=== PATIENT | female | born 1960 | race Caucasian/White ===

== ENCOUNTER 2022-10-05 11:22 | Outpatient (CLI) | payer MEDICAID, SELFPAY ==
--- NOTE | 2022-10-05 11:31 | MM_ITS ---
WS: [id number] VIEWS: MLO and CC views both breasts. 3D digital tomosynthesis is also included in this exam. Comparison made with prior exam of 11/07/2012, 10/09/2014, 06/07/2016,. Findings: There was no sign of mass, architectural distortion or suspicious calcification in either breast. Sc attered fibroglandular densities MM/[id number] Impression: BI-RADS: 2-Benign FOLLOW-UP: 1 Year Follow-up This mammogram was also analyzed by the Computer Aided Detection System [employer] Contact Center Assistant.
== END 2022-10-05 11:23 | disposition home or self-care (01) ==
PROVIDERS: PCP Internal Medicine; Visit Provider Internal Medicine
DX: Z12.31 Encounter for screening mammogram for malignant neoplasm of breast (principal)
CPT/HCPCS: 77063; 77067

== ENCOUNTER 2022-12-12 13:08 | Outpatient (CLI) | payer MEDICAID, SELFPAY ==
--- NOTE | 2022-12-12 13:24 | CT_ITS ---
WS: [id number] LDCT LUNG CANCER SCREENING HISTORY: TOBACCO ABUSE, CONTINUOUS TECHNIQUE: Axial imaging performed from the apices to 1 cm below the costophrenic angles. Coronal and sagittal reformats are submitted with axial MIP series. All CT scans at [facility] use at least one of these dose optimization techniques: automated exposure control; mA and/or kV adjustment per patient size (includes targeted exams where dose is matched to clinical indication); or iterativ e reconstruction. DLP: 72.91 mGy.cm DIvol: Mean CTDIvol: 1.70 (mGy) COMPARISON: None available. Diagnostic quality: Satisfactory Lungs: Mild chronic emphysema. 4 mm nodule RIGHT upper lobe. No additional noncalcified nodules are i dentified. There are a few scattered calcified granulomata. No endobronchial lesions. Heart: Normal size heart with no pericardial effusion.. Other findings: Mild enlargement of the pulmonary artery. Very minimal atherosclerosis aorta. Calcifi ed mediastinal and hilar lymph nodes. No pericardial effusion. Splenic and hepatic granulomatous. No adrenal mass. Increase in thoracic kyphosis. CT/CT lung screening [id number] IMPRESSION: LUNG-RADS: 3-Probably Benign FOLLOW UP: 6 Month LDCT OTHER FINDINGS (S MODIFIER): None.
== END 2022-12-12 13:09 | disposition home or self-care (01) ==
PROVIDERS: PCP Internal Medicine; Visit Provider Internal Medicine
DX: Z12.2 Encounter for screening for malignant neoplasm of respiratory organs (principal); F17.200 Nicotine dependence, unspecified, uncomplicated
CPT/HCPCS: 71271

== ENCOUNTER 2023-04-06 13:22 | Outpatient (CLI) | payer MEDICAID, SELFPAY ==
--- NOTE | 2023-04-06 13:26 | XR_ITS ---
WS: [email or web address] SCREENING DEXA SCAN Medialive CLINICAL INFORMATION: ASYMPTOMATIC POSTMENOPAUSAL STATUS COMPARISON: None. FINDINGS: The L1-L4 bone mineral density measures 0.961 g/cm2. This corresponds to a T score score of -1.8 and Z score of -1.3. Left femoral neck bone mineral density measures 0.910 g/cm2. This corresponds to a T score of -0.8 an d Z score of -0.4. Right femoral neck bone mineral density measures 0.887 g/cm2. This corresponds to a T score -1.0of an d Z score of -0.5. Mean femoral neck bone mineral density measures 0.899 g/cm2. This corresponds to a T score of -0.9 an d Z score of -0.4. IMPRESSION: Osteopenia lumbar spine. Osteopenia femoral necks at the lower end of the range. Patient's FRAX calculated 10 year probability for major osteoporotic fracture is 10.1% and osteoporot ic hip fracture is 2.3%.
== END 2023-04-06 13:23 | disposition home or self-care (01) ==
PROVIDERS: PCP Internal Medicine; Visit Provider Internal Medicine
DX: Z78.0 Asymptomatic menopausal state (principal); M85.89 Other specified disorders of bone density and structure, multiple sites
CPT/HCPCS: 77080

== ENCOUNTER 2023-07-03 11:53 | Outpatient (CLI) | payer MEDICAID, SELFPAY ==
--- NOTE | 2023-07-03 12:00 | CT_ITS ---
WS: [email or web address] LDCT LUNG CANCER SCREENING TECHNIQUE: Noncontrast CT of the chest with coronal and sagittal reformatted images. CLINICAL INFORMATION: NICOTINE DEPENDENCE,CIGARETTES COMPARISON: CT 12/12/2022 DLP: 78.41 mGy.cm DIvol: Mean CTDIvol: 1.80 (mGy) All CT scans at [facility] use at least one of these dose optimization techniques: automat ed exposure control; mA and/or kV adjustment per patient size (includes targeted exams where dose is matched to clinical indication); or iterative reconstruction. FINDINGS: Mild chronic emphysematous changes. Slightly irregular 4 mm nodule RIGHT upper lobe near the lung ape x is stable. A few calcified granulomas. Stable 4 mm RIGHT lower lobe nodule laterally. Normal caliber thoracic aorta. Calcified mediastinal hilar and subcarinal lymph nodes. Spinal granulo mas. Hepatic granulomas. Adrenal glands are normal. Normal GE junction. Moderate thoracic kyphosis. Disc narrowing in the midthoracic spine. IMPRESSION: CT/CT lung screening [id number] LUNG-RADS: 2-Benign Appearance or Behavior FOLLOW UP: 12 Month: Continue annual screening with LDCT
== END 2023-07-03 11:54 | disposition home or self-care (01) ==
LOC: RAD 11:54
PROVIDERS: PCP Internal Medicine; Visit Provider Internal Medicine
DX: Z12.2 Encounter for screening for malignant neoplasm of respiratory organs (principal); F17.210 Nicotine dependence, cigarettes, uncomplicated
CPT/HCPCS: 71271

== ENCOUNTER → 2024-02-20 14:56 | Outpatient (CLI) | payer MEDICAID, SELFPAY ==
--- NOTE | 2024-02-20 15:03 | MM_ITS ---
WS: [email or web address] Bilateral screening 3D tomosynthesis digital mammogram, 02/20/2024 Clinical Data: SCREENING Comparison: 10/05/2022, 06/07/2016, 10/09/2014, 11/07/2012. Findings: The breast parenchymal pattern shows fibroglandular tissue. No spiculated masses or clustered calcifi cations are seen. There are no secondary signs of carcinoma. There are mole markers on both breasts. There are benign calcifications in the right breast.. MM/[place] [id number] Impression: 1. Negative bilateral mammogram unchanged. 2. Recommend annual screening mammograms. BIRADS: 1-Negative FOLLOW UP: 1 Year Follow-up The CAD policy checker was used.
== END | disposition home or self-care (01) ==
LOC: RAD 14:56
PROVIDERS: PCP Internal Medicine; Visit Provider Internal Medicine
DX: Z12.31 Encounter for screening mammogram for malignant neoplasm of breast (principal); R92.323 Mammographic fibroglandular density, bilateral breasts; R92.1 Mammographic calcification found on diagnostic imaging of breast
CPT/HCPCS: 77063; 77067

== ENCOUNTER → 2024-05-26 14:35 | Outpatient (BNVA) | payer MEDICAID, SELFPAY | PROVIDERS: PCP Internal Medicine; Visit Provider Podiatrist Foot & Ankle Surgery | DX: M76.891 Other specified enthesopathies of right lower limb, excluding foot (principal); M25.861 Other specified joint disorders, right knee; M25.561 Pain in right knee | CPT/HCPCS: 73564 ==

== ENCOUNTER 2024-06-16 14:03 | Outpatient (CLI) | payer MEDICAID, SELFPAY ==
--- NOTE | 2024-06-16 14:06 | CT_ITS ---
WS: [email or web address] LDCT LUNG CANCER SCREENING TECHNIQUE: Noncontrast CT of the chest with coronal and sagittal reformatted images. CLINICAL INFORMATION: HISTORY OF TOBACCO USE COMPARISON: CT 07/03/2023 DLP: 76.12 mGy.cm DIvol: Mean CTDIvol: 1.70 (mGy) All CT scans at [facility] use at least one of these dose optimization techniques: automat ed exposure control; mA and/or kV adjustment per patient size (includes targeted exams where dose is matched to clinical indication); or iterative reconstruction. FINDINGS: 4 mm nodule RIGHT upper lobe near the lung apex is stable. Stable 4 mm RIGHT lower lobe nod ule laterally. A few calcified granulomas. No new suspicious pulmonary parenchymal abnormalities. Mil d chronic emphysematous changes. Calcified mediastinal hilar and subcarinal lymph nodes. Normal caliber thoracic aorta. Calcified gran ulomas. Splenic and hepatic granulomas. Adrenal glands are normal. Normal GE junction. Disc space narrowing midthoracic spine. Moderate thoracic kyphosis. CT/CT lung screening [id number] IMPRESSION: LUNG-RADS: 2-Benign Appearance or Behavior FOLLOW UP: 12 Month: Continue annual screening with LDCT
== END 2024-06-16 14:04 | disposition home or self-care (01) ==
LOC: RAD 14:04
PROVIDERS: PCP Internal Medicine; Visit Provider Internal Medicine
DX: Z12.2 Encounter for screening for malignant neoplasm of respiratory organs (principal); R91.8 Other nonspecific abnormal finding of lung field; J84.10 Pulmonary fibrosis, unspecified; D73.89 Other diseases of spleen; K75.3 Granulomatous hepatitis, not elsewhere classified
CPT/HCPCS: 71271

== ENCOUNTER 2024-07-02 15:47 | Outpatient (CLI) | payer MEDICAID, SELFPAY ==
--- NOTE | 2024-07-02 15:49 | MR_ITS ---
WS: [email or web address] MRI RIGHT KNEE HISTORY: Chronic RIGHT knee pain. No injury. COMPARISON: 05/23/2016 Anterior cruciate ligament: Marked thickening and increased signal throughout the ACL. Most significa nt for mucoid degeneration. Majority the fibers are still identified and intact. Posterior cruciate ligament: Intact. Medial collateral ligament: Intact. Posterior lateral corner structures: Intact. Medial menisci: Intact, mild surface fraying of the posterior horn but no tear. Lateral meniscus: Very small caliber nearly absent posterior horn. Consistent with a complex tear inv olving nearly the entire meniscus. Increased signal in the anterior horn also but no tear. Extensor mechanism: Distal quadriceps tendon and patellar tendons are intact. Fluid and soft tissue: Small suprapatellar joint effusion. Small Chris's cyst. Osseous and articular structures: Patellofemoral compartment: No significant cartilage abnormality. Medial compartment: Mild narrowing of the medial compartment. Mild thinning and fissuring of the cart ilage but no full-thickness defect. Lateral compartment: Mild narrowing of the lateral compartment with thinning and fissuring of the car tilage. Slightly greater chondromalacia along the weightbearing surface of the femoral condyle. No fu ll-thickness cartilage defect. MR/MR knee RT wo con* [id number] IMPRESSION: 1. Marked mucoid degeneration throughout the ACL. Significant progression sinc e 2015. 2. Small caliber, nearly absent posterior horn lateral meniscus consistent wit h a very complex tear involving all surfaces. 3. Mild increased signal in the anterior horn of the lateral meniscus but no d efinite tear. 4. Mild tricompartment joint space narrowing. 5. Mild chondromalacia in the medial and lateral compartments but greatest inv olving the lateral compartment. No full-thickness cartilage defect. 6. Small suprapatellar joint effusion and small Chris's cyst.
== END 2024-07-02 15:48 | disposition home or self-care (01) ==
LOC: RAD 15:47
PROVIDERS: PCP Internal Medicine; Visit Provider Internal Medicine
DX: S83.271A Complex tear of lateral meniscus, current injury, right knee, initial encounter (principal); M71.21 Synovial cyst of popliteal space [Baker], right knee; X58.XXXA Exposure to other specified factors, initial encounter
CPT/HCPCS: 73721

== ENCOUNTER → 2024-09-04 13:34 | Outpatient (BNVA) | payer MEDICAID, SELFPAY | PROVIDERS: PCP Internal Medicine; Visit Provider Student in an Organized Health Care Education/Training Program | DX: M25.561 Pain in right knee (principal); S83.206A Unspecified tear of unspecified meniscus, current injury, right knee, initial encounter; X58.XXXA Exposure to other specified factors, initial encounter; M17.11 Unilateral primary osteoarthritis, right knee | CPT/HCPCS: 73560; 73565 ==

== ENCOUNTER 2024-12-17 14:11 | Outpatient (CLI) | payer MEDICAID, SELFPAY ==
--- NOTE | 2024-12-17 14:21 | US_ITS ---
WS: [email or web address] THYROID ULTRASOUND HISTORY: THYROTOXICOSIS OF OTHER SPECIFIED ORIGIN COMPARISON: 11/03/2016 Right lobe: 1.8 cm x 2.2 cm x 4.6 cm (w x ap x l). Volume: 8.5 cm3. Heterogeneous, lobulated thyroid with pseudo nodules and fibrous septa. No discrete well-formed hypoechoic nodule is identified. There is mild increased vascularity within the gland. There is a small hyperechoic nodule measuring 0.9 x 1.0 x 0.7 cm in the mid gland. Left lobe: 1.9 cm x 2.1 cm x 4.1 cm (w x ap x l). Volume: 7.6 cm3. Mildly enlarged heterogeneous thyroid. Pseudo nodules and linear fibrous septa throughout the gland. There is mild increased vascularity. Isthmus: 0.6 cm. US/US thyroid [id number] IMPRESSION: 1. TI-RADS 3; subcentimeter thyroid nodules. No ultrasound follow-up necessary . 2. Heterogeneous lobulated thyroid consistent with prior Manolo's thyroidit is.
== END 2024-12-17 14:12 | disposition home or self-care (01) ==
PROVIDERS: PCP Internal Medicine; Visit Provider Internal Medicine
DX: E05.80 Other thyrotoxicosis without thyrotoxic crisis or storm (principal); E04.1 Nontoxic single thyroid nodule; R93.89 Abnormal findings on diagnostic imaging of other specified body structures
CPT/HCPCS: 76536